=== PATIENT | male | born 1970 | race African-American/Black ===

== ENCOUNTER 2019-09-03 13:42 | Emergency (ER) | payer SELFPAY ==
--- NOTE | ~2019-09-03 | US_ITS ---
EXAMINATION: US scrotum doppler DATE: 09/03/2019 14:44 INDICATION: left testicular pain and swelling TECHNIQUE: Testicular sonogram utilizing grayscale and Doppler COMPARISON: None. FINDINGS: The right testis measures 4.4 x 2.7 x 2.4 cm. The left testis measures 3.0 x 2.8 x 3.9 cm. Symmetric normal grayscale appearance to both testes. A couple small anechoic cysts measuring up to 3 mm at the left rete testes. There is normal vascular flow to both testes. The right epididymis is normal with normal vascular flow. The left epididymis appears swollen with heterogeneously decreased echogenicity and diffuse increased vascular flow on color Doppler consistent with epididymitis. There is no varic ocele. Small left hydrocele. IMPRESSION: 1. Left epididymitis with likely reactive small left hydrocele. Reviewed, dictated and finalized at location A. [facility]
[2019-09-03 13:49] VITALS: BP 158/82; PULSE 61; RESP 20; TEMP 37.4; O2SAT 100
--- NOTE | 2019-09-03 14:24 | PC.NURSE ---
pt to u/s via
[2019-09-03 14:32] LABS: Add Urine Microscopic? YES; Amorphous Sediment Urine Few; Appearance Urine Clear (Clear); Bacteria Urine Trace /hpf; Bilirubin Urine Negative (Negative); Blood Urine Negative (Negative); Color Urine Yellow (Yellow); Glucose Urine UA Negative (Negative); Ketones Urine Negative (Negative); Leukocyte Esterase Ur 1+ LEU/UL (Negative); Mucus Urine Rare /lpf; Nitrate Urine Negative (Negative); Protein Urine Negative (Negative); Specific Grav Ur 1.016 (1.001-1.035); Squamous Epithelial Cell Urine Rare /hpf (Few); WBC Urine 31-50 /hpf
--- NOTE | 2019-09-03 14:41 | ED.MALEGU ---
HPI - Male Genitourinary General Chief complaint: Urogenital-Male Stated complaint: swollen left testicle Time Seen by Provider: 09/03/19 14:33 Source: patient and RN notes reviewed Mode of arrival: ambulatory Limitations: no limitations History of Present Illness HPI Narrative: A 48 y/o male presents to the ED with worsening lt testicle swelling and pain for the past 10 days. He reports associated urinary urgency and dysuria. He notes that he was dx with a viral infection shortly before his symptoms started. He denies any penile discharge, hematuria, fevers, chills, SOB, CP, N/V/D, ABD pain, and any other medical complaints at this time. MD Complaint: testicle pain and testicle swelling Onset (ago): day(s) (10) Duration: progressively worsening Location: left testicle Associated symptoms: Reports dysuria and other (urinary urgency) Related Data Allergies Allergy/AdvReac Type Severity Reaction Status Date / Time No Known Allergies Allergy Verified 09/03/19 13:44 Review of Systems Review of Systems: All systems reviewed & are unremarkable except as noted in HPI and below Constitutional: Constitutional: Denies chills, Denies fatigue, Denies fever(s), Denies headache(s) and Denies night sweats Eyes: Eyes: Denies change in vision, Denies loss of vision and Denies other visual disturbances ENT: Denies headache(s), Denies hoarseness, Denies epistaxis, Denies nasal congestion and Denies sore throat Cardiovascular: Cardiovascular: Denies chest pain, Denies leg edema, Denies palpitations and Denies dyspnea Respiratory: Respiratory: Denies cough, Denies dyspnea and Denies wheezing Gastrointestinal: Gastrointestinal: Denies abdominal pain, Denies diarrhea, Denies nausea and Denies vomiting Genitourinary: Genitourinary: Denies hematuria, Reports dysuria, Denies penile discharge, Reports scrotal swelling (lt), Reports testicular pain (lt) and Reports urinary frequency Musculoskeletal: Musculoskeletal: Denies abnormal gait, Denies deformity, Denies joint swelling, Denies muscle weakness and Denies numbness Integumentary/Breasts: Skin/Breast: Denies rash, Denies unusual bruising and Denies wounds Neurologic: Denies abnormal gait, Denies headache(s), Denies focal weakness, Denies loss of vision and Denies numbness Psychiatric: Psychiatric: Reports no additional psychiatric complaints Endocrine: Endocrine: Denies fatigue and Denies palpitations Hematologic/Lymphatic: Hematologic/Lymphatic: Denies easy bleeding and Denies easy bruising Allergic/Immunologic: Allergic/Immunologic: Denies wheezing PMFSH Past Medical History Medical History (Updated 09/03/19 @ 16:00 by Kevin Wayne MD) Healthy adult male Surgical History Surgical History (Updated 09/03/19 @ 14:54 by Kb Cleary) No history of previous surgery Social History Social History (Updated 09/03/19 @ 14:54 by Kb Cleary) Smoking status: Never smoker Gender identity (if verbalized by the patient): Male Exam Const: General: healthy appearing, no acute distress and well developed Nutritional Appearance: well nourished Orientation/consciousness: patient oriented x3 (alert) and Other orientation findings (Alert) Limitations: no limitations HENMT: Head: normocephalic and atraumatic Ears: external ears normal General nose exam: No nasal discharge present and no epistaxis Face and sinus: face symmetric Mouth: Yes lip normal, Yes tongue normal and Yes moist mucous membranes Throat: other (No exudate, no erythema) Eyes: Conjunctivae: conjunctivae normal Sclera: sclerae normal EOM: EOMs intact bilaterally Neck: Neck: full ROM, no lymphadenopathy and supple Thyroid: thyroid normal Chest: Chest palpation & inspection: no tenderness Resp: Effort & Inspection: normal respiratory effort Auscultation: clear to auscultation bilaterally, no rales, no rhonchi, no wheezes and other (breath sounds equal) Cardio: Rate: regular rate Rhythm: regular rhythm Heart soun
[2019-09-03 15:49] VITALS: BP 170/96; PULSE 90; RESP 14; O2SAT 98
[2019-09-03] MEDS: cefTRIAXone 1 GM VIAL IM (16:21)
[2019-09-03] MEDS: AZITHROMYCIN 250 MG TABLET 1000 MG PO (16:22)
[2019-09-03] MEDS: KETOROLAC 30 MG/ML VIAL (*BKC) 60 MG IM (16:22)
[2019-09-03 16:27] VITALS: BP 154/89; PULSE 69; RESP 14; O2SAT 98
== END 2019-09-03 16:28 | disposition home or self-care (01) ==
PROVIDERS: Emergency Medicine; Emergency Provider Emergency Medicine
DX: N45.1 Epididymitis (principal)
CPT/HCPCS: 76870; 81001; 87077; 87086; 87088; 87186; 87491; 87591; 93976; 96372; 99284; A9270; J0696; J1885

== ENCOUNTER 2019-11-17 04:53 | Emergency (ER) | payer MEDICAID, SELFPAY ==
--- NOTE | 2019-11-17 05:03 | ED.ABDPAIN ---
HPI - Abdominal Pain General Chief Complaint: Urogenital-Male Stated Complaint: testicle pain/lump Time Seen by Provider: 11/17/19 04:56 History of Present Illness HPI narrative: 49 yo male w/ history of epidydimitis presents c/o testicle pain. He reports that he has had pain and swelling of the right testicle for the past week. He noted blood in his urine a few days ago. He has also had vague systemic symptoms of fatigue and chills. He says that he recently had sex with someone that had chlamydia. He was seen here 2 months ago for similar symptoms and had epidydimitis confirmed by ultrasound. Related Data Allergies Allergy/AdvReac Type Severity Reaction Status Date / Time No Known Allergies Allergy Verified 09/03/19 13:44 Review of Systems Review of Systems: All systems reviewed & are unremarkable except as noted in HPI and below Constitutional: Constitutional: Reports chills, Reports fatigue and Denies fever(s) ENT: Denies sore throat Cardiovascular: Cardiovascular: Denies chest pain Respiratory: Respiratory: Denies dyspnea Gastrointestinal: Gastrointestinal: Denies abdominal pain and Reports nausea PMFSH Past Medical History Medical History (Updated 11/17/19 @ 05:29 by Robbie Sandhu MD) Epididymitis Healthy adult male Surgical History Surgical History No history of previous surgery Social History Social History Smoking status: Never smoker Gender identity (if verbalized by the patient): Male Exam Const: General: healthy appearing, no acute distress and alert Orientation/consciousness: patient oriented x3 HENMT: Head: normal to inspection Resp: Effort & Inspection: normal respiratory effort Auscultation: clear to auscultation bilaterally Cardio: Rate: regular rate Rhythm: regular rhythm GI: GI Palp: Yes Soft to palpation and No Tenderness to palpation present (GI) : Testes: epididymal tenderness on the right and testicular swelling Skin: General skin exam: normal color Neuro: General: patient oriented x3, moves all extremities and CN's II-XI intact bilaterally Speech: normal speech Extrem: General: normal to inspection Course Vital Signs Vital signs: Vital Signs Temperature 37.0 C 11/17/19 05:05 Pulse Rate 106 H 11/17/19 05:05 Respiratory Rate 18 11/17/19 05:05 Blood Pressure 164/108 H 11/17/19 05:05 Pulse Oximetry 98 11/17/19 05:05 Temperature 37.0 C 11/17/19 05:05 Pulse Rate 106 H 11/17/19 05:05 Respiratory Rate 18 11/17/19 05:05 Blood Pressure 164/108 H 11/17/19 05:05 Pulse Oximetry 98 11/17/19 05:05 MDM - Abdominal Pain MDM Narrative Medical decision making narrative: I will treat for epidydimitis including coverage for GC and Chlamydia. Given recent ultrasound showing epidydimitis with these symptoms I do not believe that further imaigng is warranted. Medical Records Attestation: I reviewed the patient's medical records. Lab Data Attestation: I reviewed the patient's lab results. Discharge Plan Discharge Clinical Impression: Epididymitis Patient Disposition: Home, Self-Care Condition: Stable Instructions: Antibiotic Form, Epididymitis (ED) Prescriptions: New levofloxacin [Levaquin] 500 mg tablet 500 mg PO DAILY Qty: 9 RF: 5 No Action indomethacin 25 mg capsule 25 mg PO TID Qty: 15 RF: 0 Follow-up/Referrals: UNKNOWN,DOCTOR [Primary Care Provider] -
[2019-11-17 05:05] VITALS: BP 164/108; PULSE 106; RESP 18; TEMP 37; O2SAT 98
[2019-11-17] MEDS: cefTRIAXone 250 MG VIAL IM (05:27)
--- NOTE | 2019-11-17 05:31 | PC.NURSE ---
mixed rocephin with 2.1mL lido for injection.
[2019-11-17 06:04] VITALS: BP 160/99; PULSE 95; RESP 18; O2SAT 99
== END 2019-11-17 06:06 | disposition home or self-care (01) ==
LOC: ANHED 05:16
PROVIDERS: Emergency Provider Emergency Medicine
DX: N45.1 Epididymitis (principal)
CPT/HCPCS: 87491; 87591; 96372; 99283; A9270; J0696

== ENCOUNTER 2020-03-21 22:55 | Emergency (ER) | payer OTHER, SELFPAY ==
--- NOTE | ~2020-03-21 | XR_ITS ---
EXAMINATION: XR chest 2V 03/21/2020 23:41 INDICATION: Midline chest discomfort for one week PROCEDURE: 2 view chest COMPARISON: No prior studies for comparison. FINDINGS: The lungs are clear. The cardiomediastinal silhouette is within normal limits. There are no pleural effusions. There is no pneumothorax suspected. IMPRESSION: 1: NO ACUTE CARDIOPULMONARY DISEASE. Reviewed, dictated and finalized at location A.
[2020-03-21 22:58] VITALS: BP 180/105; PULSE 75; RESP 20; TEMP 36.2; O2SAT 98
--- NOTE | 2020-03-21 23:10 | ECG_ITS ---
Measurements Intervals [place] Rate: 61 P: 42 IN: 151 QRS: 33 QRSD: 72 T: 60 QT: 375 QTc: 378 Interpretive Statements SINUS RHYTHM BASELINE ARTIFACT- I, II NORMAL ECG Electronically Signed On 03-22-2020 7:05:38 CDT by Saeid Miner D.O.
[2020-03-21 23:19] VITALS: O2SAT 98
[2020-03-21 23:33] LABS: Basophils Percent Auto 0.6 % (0.2-1.2); Eosinophils Absolute Auto 0.2 K/mm3 (0-0.3); Eosinophils Percent Auto 2.8 % (0-4.4); Hematocrit 42.4 % (42.0-52.0); Immature Granulocyte Absolute 0.03 K/mm3 (0.00-0.031); Immature Granulocyte Percent A 0.5 % (0-0.5); Lymphocytes Absolute Auto 3.09 K/mm3 (0.9-3.2); Lymphocytes Percent Auto 48.8 % (18.3-44.2); Mean Corpuscular HGB Conc 35.4 g/dl (32-36); Mean Corpuscular Volume 93.2 fl (80-100); Mean Platelet Volume 9.6 fl (7.4-10.4); Monocytes Absolute Auto 0.7 K/mm3 (0.1-0.6); Monocytes Percent Auto 10.7 % (2.6-8.5); Neutrophils Absolute Auto 2.3 K/mm3 (1.3-6.7); Neutrophils Percent Auto 36.6 % (45.5-73.1); Platelet Count Result 168 k/mm3 (150-375); Red Blood Count 4.55 M/mm3 (4.6-6.20); Red Cell Distribution Width 11.9 % (11.5-14.5); White Blood Count 6.3 K/mm3 (4.5-10.0)
[2020-03-21 23:47] LABS: Anion Gap 9 mmol/L (8-16); Blood Urea Nitrogen 12 mg/dL (9-20); Calcium 9.1 mg/dL (8.4-10.2); Carbon Dioxide 24 mmol/L (22-30); Chloride 105 mmol/L (98-107); Estimated Glomerular Filt Rate > 60; Glucose 92 mg/dL (75-110); Potassium 3.8 mmol/L (3.4-5.0); Sodium 138 mmol/L (137-145)
[2020-03-21 23:51] LABS: Prothrombin Time 13.2 Seconds (11.1-14.7)
[2020-03-21 23:52] LABS: Partial Thromboplastin Time 35.1 SECONDS (22.3-36.8)
[2020-03-21 23:58] VITALS: BP 148/92; PULSE 76; RESP 19; O2SAT 96
[2020-03-21 23:58] LABS: Troponin I < 0.012 ng/mL (0.000-0.034)
[2020-03-22 00:47] VITALS: BP 145/91; PULSE 71; RESP 14; O2SAT 96
--- NOTE | 2020-03-22 00:50 | ED.CHESTPAIN ---
HPI - Chest Pain General Chief Complaint: Chest Pain Stated Complaint: chest pain after inhaling bug spray Time Seen by Provider: 03/21/20 23:10 History of Present Illness HPI narrative: Patient is a 49-year-old male who presents ER with chest pain. Reports he was at home spraying bug spray in the house when drifted backwards towards him and made him gag and cough. He then developed some central chest discomfort. No runny nose/sore throat. No stridor. He does not hear himself wheezing. Has not had issues with this previously. Reports good health prior to this. Related Data Home Medications Medication Instructions Recorded Confirmed No Home Medications 03/21/20 03/21/20 Allergies Allergy/AdvReac Type Severity Reaction Status Date / Time Sulfa (Sulfonamide Allergy Unknown Verified 03/21/20 23:03 Antibiotics) Review of Systems Review of Systems: All systems reviewed & are unremarkable except as noted in HPI and below Constitutional: Constitutional: Denies chills, Denies fever(s) and Denies weakness ENT: Denies nasal congestion and Denies sore throat Cardiovascular: Cardiovascular: Reports chest pain and Denies radiating jaw, neck or arm pain Respiratory: Respiratory: Reports cough, Denies dyspnea and Denies wheezing Gastrointestinal: Gastrointestinal: Denies abdominal pain, Denies nausea and Denies vomiting PMFSH Past Medical History Medical History (Updated 03/22/20 @ 00:57 by Jeffrey Pinon MD) Epididymitis Healthy adult male Social History Social History Smoking status: Never smoker Gender identity (if verbalized by the patient): Male Exam Narrative: Exam Narrative: GENERAL: Well-appearing, well-nourished, and in no acute distress. HEAD: Normocephalic, atraumatic. ENT: Mucous membranes moist. CHEST: Clear to auscultation. No respiratory distress. HEART: Regular rate and rhythm. Normal peripheral pulses. ABDOMEN: Soft, nontender, nondistended EXTREMITIES: Normal range of motion. No edema. SKIN: Warm, dry, no rash. NEURO: Alert and oriented x3. Course Vital Signs Vital signs: Vital Signs Temperature 97.2 F L 03/21/20 22:58 Pulse Rate 75 03/21/20 22:58 Respiratory Rate 20 03/21/20 22:58 Blood Pressure 180/105 H 03/21/20 22:58 Pulse Oximetry 98 03/21/20 22:58 Temperature 97.2 F L 03/21/20 22:58 Pulse Rate 71 03/22/20 00:47 Respiratory Rate 14 03/22/20 00:47 Blood Pressure 145/91 H 03/22/20 00:47 Pulse Oximetry 96 03/22/20 00:47 MDM - Chest Pain Lab Data Result diagrams: 03/21/20 23:22 03/21/20 23:22 Labs: Lab Results 03/21/20 03/21/20 03/21/20 Range/Units 23:22 23:22 23:22 WBC 6.3 (4.5-10.0) K/mm3 RBC 4.55 L (4.6-6.20) M/mm3 Hgb 15.0 (14.0-18.0) g/dL Hct 42.4 (42.0-52.0) % MCV 93.2 (80-100) fl MCH 33.0 (26-34) pg MCHC 35.4 (32-36) g/dl RDW 11.9 (11.5-14.5) % Plt Count 168 (150-375) k/mm3 MPV 9.6 (7.4-10.4) fl Immature Gran % (Auto) 0.5 (0-0.5) % Neut % (Auto) 36.6 L (45.5-73.1) % Lymph % (Auto) 48.8 H (18.3-44.2) % [place] % (Auto) 10.7 H (2.6-8.5) % Eos % (Auto) 2.8 (0-4.4) % Baso % (Auto) 0.6 (0.2-1.2) % Lymph # (Auto) 3.09 (0.9-3.2) K/mm3 [place] # (Auto) 0.7 H (0.1-0.6) K/mm3 Eos # (Auto) 0.2 (0-0.3) K/mm3 Baso # (Auto) 0.0 (0.0-0.1) K/mm3 Abs Immat Gran (auto) 0.03 (0.00-0.031) K/mm3 Absolute Neuts (auto) 2.3 (1.3-6.7) K/mm3 Absolute Nucleated RBC 0.0 (0.0-0.012) K/mm3 Nucleated RBC % 0.0 (0.0-0.2) % PT 13.2 (11.1-14.7) Seconds INR 1.0 APTT 35.1 (22.3-36.8) SECONDS Sodium 138 (137-145) mmol/L Potassium 3.8 (3.4-5.0) mmol/L Chloride 105 (98-107) mmol/L Carbon Dioxide 24 (22-30) mmol/L Anion Gap 9 (8-16) mmol/L BUN 12 (9-20) mg/dL Creatinine 0.90 (0.7-1.3) mg/dL Estim C
[2020-03-22 01:08] VITALS: BP 146/91; PULSE 79; RESP 19; TEMP 36.2; O2SAT 100
== END 2020-03-22 01:09 | disposition home or self-care (01) ==
PROVIDERS: Emergency Provider Emergency Medicine
DX: Z77.098 Contact with and (suspected) exposure to other hazardous, chiefly nonmedicinal, chemicals (principal)
CPT/HCPCS: 36415; 71046; 80048; 84484; 85025; 85610; 85730; 93005; 99284

== ENCOUNTER 2022-01-13 05:21 | Emergency (ER) | payer OTHER, SELFPAY ==
[2022-01-13 05:26] VITALS: BP 172/87; PULSE 77; RESP 18; TEMP 36.6; O2SAT 100
--- NOTE | 2022-01-13 05:52 | ED.GENADULT ---
HPI - General Adult General Chief complaint: GI Bleed Stated complaint: black stool Time Seen by Provider: 01/13/22 05:34 History of Present Illness HPI narrative: 51-year-old male presenting to the emergency department for evaluation of some intermittent black stools. Patient states he had an episode on Wednesday and then also had an episode on Wednesday. Patient has no prior history of gastric reflux or ulcers. Patient is not on any blood thinners. Patient did have some Pepto-Bismol but states he started taking the Pepto-Bismol after he initially saw the black stool. Patient states that his last bowel movement was not bloody or black. Patient was also concerned about a lesion on his penis. Patient noticed the sore spot after masturbation. Patient states that he has been keeping the area clean and states that it is improving. Patient states that he has and has no concern for STDs. Related Data Home Medications Medication Instructions Recorded Confirmed No Home Medications 03/21/20 03/21/20 Allergies Allergy/AdvReac Type Severity Reaction Status Date / Time Sulfa (Sulfonamide Allergy Unknown Verified 01/13/22 05:32 Antibiotics) Review of Systems Review of Systems: CONSTITUTIONAL: Denies fever, chills, or sweats. EYES: Denies visual changes, redness, or discharge. ENT: Denies rhinorrhea, congestion, sore throat, or otalgia. CARDIOVASCULAR: Denies chest pain, palpitations, or edema. RESPIRATORY: Denies cough or dyspnea. GASTROINTESTINAL: Denies abdominal pain, nausea, vomiting, or diarrhea. See HPI GENITOURINARY: Denies dysuria or hematuria. SKIN: Lesion on his penis MUSCULOSKELETAL: Denies back pain, joint pain, or myalgia. NEUROLOGIC: Denies headache, numbness, or weakness. [facility] Past Medical History Medical History (Updated 01/14/22 @ 00:00 by Background Daemon) Epididymitis Healthy adult male Surgical History Surgical History No history of previous surgery Social History Social History Smoking status: Never smoker Gender identity (if verbalized by the patient): Male Exam Narrative: APPEARANCE: Well appearing, no pain, no distress, well-nourished. HEAD: normocephalic, atraumatic. EYES: PERRLA/EOMI, conjunctivae clear. NOSE: Normal no drainage NECK: Supple. No adenopathy, no masses. RESPIRATORY: Airway patent, respirations nonlabored. Clear to auscultation bilaterally, no rales, rhonchi, wheezing. CARDIOVASCULAR: Regular rate and rhythm without murmurs rubs or gallops. ABDOMINAL: Soft, nontender, nondistended, normal bowel sounds. Hemoccult negative on KEARA Genitourinary: Small area of skin irritation on the frenulum of the penis. MUSCULOSKELETAL: Moves all extremities. Strength/ROM intact, No edema, No calf tenderness. NEURO: Alert. Cranial nerves II through XII intact. Grossly intact SKIN: Warm, dry. Normal Color Course Course Emergency Course: Patient was updated on the results of his labs and work-up. Patient was also educated on wound care for home. Patient was encouraged to have close follow-up with his primary care physician for further checkup. Vital Signs Vital signs: Vital Signs Temperature 97.8 F 01/13/22 05:26 Pulse Rate 77 01/13/22 05:26 Respiratory Rate 18 01/13/22 05:26 Blood Pressure 172/87 H 01/13/22 05:26 Pulse Oximetry 100 01/13/22 05:26 Oxygen Delivery Room Air 01/13/22 05:26 Temperature 97.8 F 01/13/22 05:26 Pulse Rate 72 01/13/22 06:45 Respiratory Rate 16 01/13/22 06:45 Blood Pressure 140/78 01/13/22 06:45 Pulse Oximetry 99 01/13/22 06:45 Oxygen Delivery Room Air 01/13/22 05:26 Medical Decision Making Vital Signs Vital Signs: Vital Signs Temperature 97.8 F 01/13/22 05:26 Pulse Rate 77 01/13/22 05:26 Respiratory Rate 18 01/13/22 05:26 Blood Pressure 172/87 H 01/13/22 05:26
[2022-01-13 06:05] LABS: Basophils Percent Auto 0.6 % (0.2-1.2); Eosinophils Absolute Auto 0.1 K/mm3 (0-0.3); Eosinophils Percent Auto 2.2 % (0-4.4); Hemoglobin 13.3 g/dL (14.0-18.0); Immature Granulocyte Absolute 0.05 K/mm3 (0.00-0.031); Lymphocytes Absolute Auto 1.98 K/mm3 (0.9-3.2); Lymphocytes Percent Auto 40.5 % (18.3-44.2); Mean Corpuscular HGB Conc 34.1 g/dl (32-36); Mean Corpuscular Hemoglobin 32.9 pg (26-34); Mean Corpuscular Volume 96.5 fl (80-100); Mean Platelet Volume 9.2 fl (7.4-10.4); Monocytes Absolute Auto 0.8 K/mm3 (0.1-0.6); Neutrophils Absolute Auto 1.9 K/mm3 (1.3-6.7); Neutrophils Percent Auto 38.7 % (45.5-73.1); Platelet Count Result 163 k/mm3 (150-375); Red Blood Count 4.04 M/mm3 (4.6-6.20); Red Cell Distribution Width 12.1 % (11.5-14.5); White Blood Count 4.9 K/mm3 (4.5-10.0)
[2022-01-13 06:17] LABS: Alanine Aminotransferase 50 U/L (6-50); Albumin Level 4.4 g/dL (3.5-5.1); Alkaline Phosphatase 62 U/L (38-126); Anion Gap 5 mmol/L (8-16); Aspartate Amino Transferase 43 U/L (17-59); Bilirubin,Total 0.3 mg/dL (0.2-1.3); Blood Urea Nitrogen 12 mg/dL (9-20); Calcium 8.3 mg/dL (8.4-10.2); Carbon Dioxide 24 mmol/L (22-30); Chloride 109 mmol/L (98-107); Estimated CRCL calculation 100 ml/min; Estimated Glomerular Filt Rate > 60; Glucose 100 mg/dL (65-110); Potassium 3.6 mmol/L (3.4-5.0); Sodium 138 mmol/L (137-145)
[2022-01-13 06:19] LABS: INR 1.1; Prothrombin Time 13.5 Seconds (11.1-14.7)
[2022-01-13 06:20] LABS: Partial Thromboplastin Time 35.9 SECONDS (22.3-36.8)
[2022-01-13 06:28] LABS: Atypical Lymphocytes Present; Platelet Estimate Adequate (Adequate)
[2022-01-13 06:45] VITALS: BP 140/78; PULSE 72; RESP 16; O2SAT 99
== END 2022-01-13 06:50 | disposition home or self-care (01) ==
PROVIDERS: Emergency Provider Emergency Medicine
DX: R19.5 Other fecal abnormalities (principal); L98.8 Other specified disorders of the skin and subcutaneous tissue
CPT/HCPCS: 36415; 80053; 85025; 85610; 85730; 99283